=== PATIENT | male | born 1980 | race Caucasian/White ===

== ENCOUNTER 2023-08-27 13:30 | Emergency (ER) | payer OTHER ==
[2023-08-27 13:39] VITALS: BP 113/82; PULSE 90; RESP 18; TEMP 97; BMI 29.0
[2023-08-27] MEDS ORDERED: LIDOCAINE 4% PATCH TP ONE (14:26)
[2023-08-27] MEDS ORDERED: KETOROLAC TROMETHAMINE 30 MG/1 ML VIAL ONE (14:26)
[2023-08-27] MEDS ORDERED: diazePAM 5 MG TABLET ONE (14:26)
[2023-08-27] MEDS: KETOROLAC TROMETHAMINE 30 MG/1 ML VIAL IM ONE (14:27)
[2023-08-27] MEDS: LIDOCAINE 4% PATCH TP ONE (14:27)
[2023-08-27] MEDS: diazePAM 5 MG TABLET PO ONE (14:29)
[2023-08-27] MEDS ORDERED: DEXAMETHASONE SOD PHOSPHATE 10 MG/1 ML VIAL ONE (15:05)
[2023-08-27] MEDS: DEXAMETHASONE SOD PHOSPHATE 10 MG/1 ML VIAL IM ONE (15:07)
[2023-08-27] MEDS ORDERED: LIDOCAINE PATCH REMOVAL MC ONE (22:00)
== END 2023-08-27 15:34 | disposition home or self-care (01) ==
LOC: JERFT 13:30
PROC: 3E0233Z Introduction of Anti-inflammatory into Muscle, Percutaneous Approach (ICD-10-PCS; principal; 2023-08-27)
PROC: 3E023GC Introduction of Other Therapeutic Substance into Muscle, Percutaneous Approach (ICD-10-PCS; 2023-08-27)
DX: M54.32 Sciatica, left side (principal); M54.9 Dorsalgia, unspecified; X50.0XXA Overexertion from strenuous movement or load, initial encounter
CPT/HCPCS: 99284-25; J1100